=== PATIENT | female | born 1965 | race Caucasian/White ===

== ENCOUNTER 2018-02-18 23:26 | Emergency (ER) | payer MEDICARE ==
[~2018-02-18] VITALS: Ht 170.2 cm; Wt 77.3 kg
[2018-02-18 23:33] VITALS: Ht 170.2 cm; Wt 77.3 kg
[2018-02-18] MEDS ORDERED: CHRONULAC30 ML PO (23:35)
[2018-02-18] MEDS ORDERED: VENTOLIN HFA18 GM INH (23:35)
[2018-02-18] MEDS ORDERED: FLORINEF 0.1 M0.1 MG PO (23:35)
[2018-02-18] MEDS ORDERED: AMITIZA24 MCG PO (23:35)
[2018-02-18] MEDS ORDERED: PRECOSE50 MG PO (23:35)
[2018-02-18] MEDS ORDERED: PROTONIX40 MG PO (23:36)
[2018-02-18] MEDS ORDERED: NORCO 10-325 TA1 TAB PO (23:36)
[2018-02-18] MEDS ORDERED: XANAX1 MG PO (23:37)
[2018-02-18] MEDS ORDERED: LIPITOR10 MG PO (23:37)
[2018-02-19 00:13] LABS: BASOPHILS 0.3 % (0-2); HEMATOCRIT 38.8 % (36.0-48.0); HEMOGLOBIN 13.4 g/dL (12-16); IMMATURE GRANULOCYTES 0.2 % (0-5); LYMPHOCYTES 43.7 % (15-50); MCH 31.5 pg (26.0-34.0); MCHC 34.5 g/dL (31.0-37.0); MCV 91.3 fL (80.0-100.0); MEAN PLATELET VOLUME 9.5 fL (7.4-10.4); NEUTROPHILS 48.8 % (40-80); PLATELET COUNT 235 10x3/uL (130-400); RBC 4.25 10x6/uL (4.00-5.40); RDW 13.3 % (11.5-14.5); WBC 10.2 10x3/uL (4.8-10.8)
[2018-02-19 00:19] LABS: APPEARANCE CLEAR (CLEAR); BILIRUBIN NEGATIVE (NEGATIVE); COLOR STRAW (YELLOW); GLUCOSE NEGATIVE (NEGATIVE); KETONE NEGATIVE (NEGATIVE); NITRITE NEGATIVE (NEGATIVE); PH 5.5 (5.0-6.0); PROTEIN NEGATIVE (NEGATIVE); UROBILINOGEN NORMAL (NORMAL)
[2018-02-19 00:23] LABS: BACTERIA FEW /hpf (NONE SEEN); EPITHELIAL CELLS 0-5 /hpf (0-5); RED CELLS - URINE 0-5 /hpf (0-5); WHITE CELLS - URINE 0-5 /hpf (0-5)
[2018-02-19 00:28] LABS: UDS - AMPHET NEGATIVE QUAL (NEGATIVE); UDS - BARB NEGATIVE QUAL (NEGATIVE); UDS - BENZO POSITIVE QUAL (NEGATIVE); UDS - COCAINE NEGATIVE QUAL (NEGATIVE); UDS - OPIATE POSITIVE QUAL (NEGATIVE); UDS - PCP NEGATIVE QUAL (NEGATIVE); UDS - THC POSITIVE QUAL (NEGATIVE)
[2018-02-19 00:32] LABS: ALBUMIN 3.8 g/dL (3.4-5.0); BILIRUBIN - TOTAL 0.34 mg/dL (0.2-1.3); CALCIUM 9.5 mg/dL (8.5-10.1); CARBON DIOXIDE 30.9 mmol/L (21.0-32.0); MAGNESIUM - SERUM 1.5 mg/dL (1.8-2.4); POTASSIUM - SERUM 3.9 mmol/L (3.5-5.1); PROTEIN - SERUM 7.5 g/dL (6.4-8.2)
[2018-02-19 02:48] VITALS: BP 132/79
== END 2018-02-19 02:50 ==
LOC: D.ER 23:26
PROVIDERS: Emergency Medicine
DX: F32.9 Major depressive disorder, single episode, unspecified (principal); G89.29 Other chronic pain; J44.9 Chronic obstructive pulmonary disease, unspecified; E11.9 Type 2 diabetes mellitus without complications; F19.10 Other psychoactive substance abuse, uncomplicated; E83.42 Hypomagnesemia; R45.851 Suicidal ideations; F17.200 Nicotine dependence, unspecified, uncomplicated